=== PATIENT | female | born 1960 ===

== ENCOUNTER 2021-03-27 12:45 | Inpatient (IN) | payer OTHER ==
[~2021-03-27] VITALS: Ht 162.6 cm; Wt 72.6 kg
[2021-03-27] MEDS ORDERED: ZESTRIL2.5 MG (14:58)
[2021-03-28] MEDS ORDERED: PANTOPRAZOLE SO40 MG (15:20)
[2021-03-28] MEDS ORDERED: ATORVASTATIN CA40 MG (15:20)
== END 2021-03-31 13:46 | disposition home or self-care (01) | DRG 743 ==
LOC: OB/GYN 03-28 06:16 → O/R 03-28 06:16 → OB/GYN 03-28 12:45
PROVIDERS: ADMIT Specialist; ATTEND Specialist
PROC: 0DNN0ZZ Release Sigmoid Colon, Open Approach (ICD-10-PCS; 2021-03-28)
PROC: 0UT70ZZ Resection of Bilateral Fallopian Tubes, Open Approach (ICD-10-PCS; 2021-03-28)
PROC: 0TN70ZZ Release Left Ureter, Open Approach (ICD-10-PCS; 2021-03-28)
PROC: 07BC0ZZ Excision of Pelvis Lymphatic, Open Approach (ICD-10-PCS; 2021-03-28)
PROC: 0DBU0ZZ Excision of Omentum, Open Approach (ICD-10-PCS; 2021-03-28)
PROC: 0UT20ZZ Resection of Bilateral Ovaries, Open Approach (ICD-10-PCS; principal; 2021-03-28 16:00)
DX: D27.1 Benign neoplasm of left ovary (principal); N99.4 Postprocedural pelvic peritoneal adhesions; N73.6 Female pelvic peritoneal adhesions (postinfective); N83.8 Other noninflammatory disorders of ovary, fallopian tube and broad ligament; I10 Essential (primary) hypertension